=== PATIENT | female | born 1945 | race Caucasian/White ===

== ENCOUNTER → 2018-11-04 | Outpatient (CLI) | payer MEDICARE, OTHER ==
[~2018-11-04] MED LIST: FURO40 PO; LISI5 PO; Micro-K10 MEQ; POTCHL10ER PO
== END | disposition home or self-care (01) ==
LOC: LAB SHORT 16:29 → LAB 16:29
DX: N89.8 Other specified noninflammatory disorders of vagina (principal)
CPT/HCPCS: 87070; 87205

== ENCOUNTER 2020-12-27 05:50 | Day surgery (SDC) | payer MEDICARE, OTHER ==
[~2020-12-27] VITALS: Ht 160 cm; Wt 94.0 kg
[~2020-12-27 05:50] MED LIST changes: +ALLER-TEC PO; +ARNICA TOP; +Acetaminophen500 MG PO; +MULVITA PO; +OXYC10ER PO; +TRIDERM28.4 GM TOP; +VITAMIN D310 MC4 PO
--- NOTE | 2020-12-27 06:41 | NUR ---
PT TO SDS VIA WC. PT REPORTS NPO SINCE MIDNIGHT. History, Chart, Medications and Allergies reviewed before start of procedure. Lungs clear T/O to Auscultation. PT REPORTS BLISTERS TO R POSTERIOR CALF X A FEW DAYS. REPORTS HAS CREAM THAT SHE HAS NOT APPLIED TO SITE. NOTIFIED ABOUT BLISTERS TO OPERATIVE SIDE.
--- NOTE | 2020-12-27 07:27 | NUR ---
MD AT BEDSIDE TO ASSESS R CALF. PROCEDURE CANCELLED, PT AND MD AGREE ON DECISION. DAUGHTER CALLED.
--- NOTE | 2020-12-27 07:43 | NUR ---
PT DRESSES s ASSISTANCE. OTD IN NAD VIA WC. DAUGHTER SAFE RIDE HOME.
== END 2020-12-27 22:56 | disposition home or self-care (01) ==
LOC: ORSCMMR 05:50 → ORD 07:30 → ORSCMMR 22:56
DX: M17.11 Unilateral primary osteoarthritis, right knee (principal); Z53.9 Procedure and treatment not carried out, unspecified reason
CPT/HCPCS: A9270; J0171; J0690; J0735; J1885; J2795; J7120

== ENCOUNTER 2021-12-04 07:52 | Day surgery (SDC) | payer OTHER ==
[~2021-12-04] VITALS: Ht 162.6 cm; Wt 83.5 kg
--- NOTE | 2021-12-04 09:37 | NUR ---
12/04/21 0937 Eugenie Weiss History, Chart, Medications and Allergies reviewed before start of procedure. Patient confirms NPO status and agrees with scheduled surgery. 3-LEAD EKG REVIEWED WITH PHYSICIAN PRIOR TO START OF PROCEDURE. MONITOR INTACT WITH CONTINUOUS PULSE OXIMETRY AND INTERMITTENT BP. PATIENT DETERMINED TO BE ASA APPROPRIATE FOR PROPOFOL SEDATION PRIOR TO START OF PROCEDURE BY O2 @ 3L N/C T.O PROCEDURE
--- NOTE | 2021-12-04 10:40 | NUR ---
Discharge instructions reviewed with patient. Patient verbalizes understanding. Copy given to patient to take home. Patient States Post-Procedure ride home has been arranged. Patient up to Ambulate independently. Gait steady. Discharged via wheelchair to private car for ride home.
== END 2021-12-04 23:50 | disposition home or self-care (01) ==
LOC: ORSCMMR 07:52 → ORD 09:00 → ORSCMMR 23:50
PROVIDERS: Internal Medicine Gastroenterology
PROC: 0DJD8ZZ Inspection of Lower Intestinal Tract, Via Natural or Artificial Opening Endoscopic (ICD-10-PCS; principal; 2021-12-04 09:00)
DX: Z12.11 Encounter for screening for malignant neoplasm of colon (principal); Z86.010 Personal history of colon polyps; K57.30 Diverticulosis of large intestine without perforation or abscess without bleeding; I10 Essential (primary) hypertension; Z79.899 Other long term (current) drug therapy
CPT/HCPCS: J2704; J7120